=== PATIENT | male | born 2000 | race Caucasian/White ===

== ENCOUNTER 2018-09-14 22:37 | Emergency (ER) | payer OTHER ==
[~2018-09-14] VITALS: Ht 182.9 cm; Wt 86.4 kg
[2018-09-14 22:40] VITALS: BP 134/88; TEMP 97
[2018-09-14] MEDS ORDERED: NORCO 325 MG-7.1 TAB PO (23:40)
[2018-09-14] MEDS ORDERED: AMOXICILLIN 50500 MG PO (23:40)
[2018-09-15 00:07] VITALS: PULSE 72
== END 2018-09-15 00:10 | disposition home or self-care (01) ==
LOC: COL.ER 22:37
DX: K08.89 Other specified disorders of teeth and supporting structures (principal)

== ENCOUNTER 2020-03-14 00:09 | Emergency (ER) | payer OTHER ==
[~2020-03-14] VITALS: Ht 182.9 cm; Wt 86.4 kg
[~2020-03-14 00:09] MED LIST: AMOXICILLIN 50500 MG PO; NORCO 325 MG-7.1 TAB PO
[2020-03-14 00:16] VITALS: TEMP 98
[2020-03-14] MEDS ORDERED: AMOXICILLIN 50500 MG PO (00:37)
[2020-03-14 00:55] VITALS: BP 138/88; PULSE 75
== END 2020-03-14 00:57 | disposition home or self-care (01) ==
LOC: COL.ER 00:09
DX: K02.9 Dental caries, unspecified (principal); Z98.818 Other dental procedure status